=== PATIENT | male | born 1960 | race Caucasian/White ===

== ENCOUNTER 2020-11-29 09:11 | Day surgery (SDC) | payer BC ==
[2020-11-29] MEDS ORDERED: Dextrose 5%-Lactated Ringers 1,000 ML IV SCH (09:15)
[2020-11-29] MEDS ORDERED: Propofol 200 MG/20 ML SDV ONE (11:27)
[2020-11-29] MEDS ORDERED: Midazolam 1 MG/ML 2 ML SDV ONE (11:27)
[2020-11-29] MEDS ORDERED: fentaNYL 100 MCG/2 ML SDV ONE (11:27)
--- NOTE | 2020-12-09 15:52 | OR ---
DATE OF PROCEDURE: 11/29/2020 SURGEON: Marcio Hou MD PREOPERATIVE DIAGNOSIS: History of colon polyps. POSTOPERATIVE DIAGNOSIS: Recurrent colon polyps at hepatic flexure x2. OPERATIVE PROCEDURE: Flexible colonoscopy with polypectomy by snare technique x2. ANESTHESIA: IV sedation. INDICATIONS FOR PROCEDURE: This is a 60-year-old male presenting with history of colon polyps and for followup colonoscopy. Plan will be to proceed with colonoscopy with biopsies and polypectomy as indicated. Potential risks including bleeding and perforation were discussed, and the patient wishes to proceed. DETAILS OF PROCEDURE: The patient was taken to the operating room and placed in a left lateral decubitus position. IV sedation was administered, after which the digital rectal exam was performed. It was unremarkable. Colonoscope was then passed into the rectum with retroflexion revealing uncomplicated hemorrhoidal columns. Scope was then passed to the level of the cecum. The prep was quite good, only small liquid stool was present to that level. There were no diverticular and no areas of colitis. There were two small polyps measuring roughly 0.4 to 1.2 cm located at the hepatic flexure. These were both excised by means of cautery snare technique and delivered for histologic evaluation. Apart from that, no additional polyps were seen. Scope was then withdrawn and the procedure concluded. The patient was taken to the recovery room in satisfactory condition. Assuming the present polyps are benign, the next colonoscopy should likely be performed in 3 years. Marcio Hou MD /[id number]
== END 2020-11-29 15:17 | disposition home or self-care (01) ==
LOC: JP.SDS 09:11
PROVIDERS: ATTEND Surgery
DX: Z12.11 Encounter for screening for malignant neoplasm of colon (principal); D12.3 Benign neoplasm of transverse colon; K64.9 Unspecified hemorrhoids
CPT/HCPCS: 45385; 88305; J2250; J2704; J3010; J7121

== ENCOUNTER 2025-06-18 06:31 | Day surgery (SDC) | payer BC ==
[2025-06-18] MEDS: Lactated Ringers 1,000 ML IV SCH (07:13)
[2025-06-18] MEDS ORDERED: Propofol 200 MG/20 ML SDV ONE (07:23)
[2025-06-18] MEDS ORDERED: fentaNYL 50 MCG/ML SDV ONE (07:23)
[2025-06-18] MEDS ORDERED: Midazolam 1 MG/ML 2 ML SDV ONE (07:23)
== END 2025-06-18 09:54 | disposition home or self-care (01) ==
LOC: JP.SDS 06:31
PROVIDERS: ATTEND Surgery
DX: Z12.11 Encounter for screening for malignant neoplasm of colon (principal); D12.2 Benign neoplasm of ascending colon; D12.4 Benign neoplasm of descending colon; K21.9 Gastro-esophageal reflux disease without esophagitis; E66.9 Obesity, unspecified; F17.210 Nicotine dependence, cigarettes, uncomplicated; Z86.0100 Personal history of colon polyps, unspecified; Z79.899 Other long term (current) drug therapy
CPT/HCPCS: 00811; 45380; 45385; J2250; J2704; J3010; J7120